=== PATIENT | male | born 1955 | race Caucasian/White ===

== ENCOUNTER → 2017-12-18 09:51 | Outpatient (CLI) | payer MEDICARE | END | disposition home or self-care (01) | LOC: D.US 09:51 | DX: R60.0 Localized edema (principal); Z87.438 Personal history of other diseases of male genital organs ==

== ENCOUNTER → 2019-12-12 08:04 | Outpatient (CLI) | payer MEDICARE ==
[2019-10-22 07:29] VITALS: BMI 31.5
[~2019-12-12 08:04] MED LIST: BUPROPION XL150 MG PO; FUROSEMIDE20 MG PO; K-TAB10 MEQ PO; KLONOPIN1 MG PO; LEXAPRO20 MG PO; LOPID600 MG PO; MIRALAX17 GM PO; NORVASC10 MG PO; ROPINIROLE HCL0.5 MG PO; SINEMET 25-1001 EAC1 PO; SINEMET CR 50-1 EACH PO; SYNTHROID25 MCG PO; TOPROL XL25 MG PO; VITAMIN B COMPLEX PO; VITAMIN D3 PO
== END | disposition home or self-care (01) ==
LOC: D.HCCARDIO 08:04
PROVIDERS: ATTEND Internal Medicine Cardiovascular Disease
DX: R07.9 Chest pain, unspecified (principal)

== ENCOUNTER 2019-12-25 11:26 | Outpatient (CLI) | payer MEDICARE ==
[~2019-12-25] VITALS: Ht 182.9 cm; Wt 98.6 kg
--- NOTE | ~2019-12-25 | HEMODYNAMI ---
PATIENT:HILARIO LEE MEDICAL RECORD: [id number] : 53 LOCATION:D.CAT ADMISSION DATE: 12/25/19 Generatedon:12/25/201914:52 Patient name: HILARIO LEE Patient #: [id number] SSN: [id number] : 1955 Date of study: 12/25/2019 Page: Of Hemodynamic Procedure Report Patient Data Patient Demographics Procedure consent was obtained First Name: HILARIO Gender: Male Last Name: EJSUS : 1955 Patient #: [id number] Age: 64 year(s) Race: SSN: [id number] Additional ID: [id number] Contact details Address: [address] [place] [address] State: [place] City: [place] Zip code: [address] Past Medical History Performed procedures and imaging results Date Procedure Procedure Results Comments 12/12/2019 Stress testing Positive->Intermediate with SPECT MPI risk Allergies: No known allergies Admission Admission Data Admission Date: 12/25/2019 Admission Time: 11:26 Arrival Date: 12/25/2019 Arrival Time: 0:00 Admit Source: Other Insurance Payor: Medicare [facility] #: [id number] Height (in.): 72 BSA: 2.21 (m2) Height (cm.): 182.88 BMI: 29.49 (kg/m2) Weight (lbs.): 217.44 Weight (kg.): 98.63 Lab Results Lab Result Date: 12/25/2019 Lab Result Time: 0:00 Biochemistry Name Units Result Min Max BUN mg/dl 18 --(---*)-- 7 18 Creatinine mg/dl 1 --(--*-)-- 0.6 1.3 eGFR ml/min 79.25744 *-(----)-- 90 120 NONAFRICAN CBC Name Units Result Min Max Hematocrit % 50.4 --(--*-)-- 42 54 Hemoglobin g/dl 16.4 --(--*-)-- 13.5 17.5 Procedure Procedure Types Cath Procedure Diagnostic Procedure C [facility] w/Coronaries Sedation Charges Moderate Sedation up to 15 minutes Procedure Description Procedure Date Procedure Date: 12/25/2019 Procedure Start Time: 14:35 Procedure End Time: 14:50 Procedure Staff Name Function Beni Mirza MD Performing Physician Lourdes Ernst RT Monitor Farzaneh Gtz RT Scrub Sumeet Hatch RN Nurse Procedure Data Cath Procedure Fluoroscopy Diagnostic fluoroscopy Total fluoroscopy Time: 3.7 time: 3.7 min min Diagnostic fluoroscopy Total fluoroscopy dose: 651 dose: 651 mGy mGy Contrast Material Contrast Material Type Amount (ml) Isovue 370 63 Entry Location Entry Primary Successful Side Size Upsize Upsize Entry Closure Michel ccessful Closure Location (Fr) 1 (Fr) 2 (Fr) Remarks Device Remarks Radial Right 6 Fr Mechanical artery Short Compression Estimated blood loss: 5 ml Diagnostic catheters Device Type Used For End Catheter Placement DIAGNOSTIC Erick 110cm Procedure 5Fr catheter ([id number]) DIAGNOSTIC [place] 110cm 5 Procedure Fr catheter ([id number]) DIAGNOSTIC AR MOD 5Fr Procedure Catheter ([id number]) Procedure Complications No complications Procedure Medications Medication Administration Route Dosage Oxygen etCO2 Nasal cannula 3 l/min Lidocaine 2% added to field 20 Heparin Flush Bag added to field 2 bags (1000units/500ml NS) 0.9% NaCl I.V. 100 ml/hr Versed I.V. 1 mg Fentanyl I.V. 50 mcg Radial Cocktail I.A. 1 syringe (Verapamil 2mg/Nitro 400mcg/Heparin 1500units) Versed I.V. 1 mg Fentanyl I.V. 50 mcg Hemodynamics Rest BSA: 2.21 (m2) HGB: 16.4 (g/dl) O2 Consumption: Estimated: 266.48 (ml/min) O2 Co nsumption indexed: Estimated:120.58 (ml/min/m) Heart Rate: 81 (bpm) Pressure Samples Time Site Value (mmHg) Purpose Heart Use Rate(bpm) 14:40 LV 152/-7,19 Snapshot 91 14:42 AO 112/78(87) Pullback 80 14:42 LV 127/-2,9 Pullback 80 Gradients Valve Time Site 1 Site 2 Mean SEP/DFP Peak To Heart Use (mmHg) (sec/min) Peak Rate (mmHg) (bpm) Aortic 14:42 LV AO 7 17 15 80 127/-2,9 112/78(87) Calculations Valve P-P Mean Valve Index Valve Source Name Gradient Area Flow (cm2) Aortic 15 7 15 7 Snapshots Pre Cath Intra NCS Post Cath Vital Signs Time Heart Resp SPO2 etCO2 NIBP (mmHg) Rhythm Pain Sedation Rate (ipm) (%) (mmHg) Status Level (bpm) 14:22:56 102 13 93 0 136/103(126) NSR 0 (11) 10(A) , No pain 14:27:10 78 15 92 25.5 145/100(120) NSR 0 (11) 10(A) , No pain 14:31:28 77 10 91 44.4 139/94(134) NSR 0 (11) 10(A) , No pain 14:36:33 78 15 90 41.4 137/123(131) NSR 0 (11) 10(A) , No pain 14:40:41 79 11 91 34.6 108/81(89) NSR 0 (11) 10(A) , No pain 14:44:44 81 12 93 44.3 124/88(106) NSR 0 (11) 10(A) , No pain 14:49:50 81 11 93 30.8 119/83(100) NSR 0 (11) 10(A) , No pain Medications Time Medication Route Dose Verified Delivered Reason Notes Effectiveness by by 14:27:08 Oxygen etCO2 3 l/min Beni Buffie used for Nasal Hermes Hatch RN procedure cannula 14:27:14 Lidocaine 2% added 20ml Beni Beni for local to vial Hermes Mirza MD anesthetic field 14:27:39 Heparin Flush added 2 bags Beni Beni used for Bag to Hermes Mirza MD procedure (1000units/500ml field NS) 14:27:47 0.9% NaCl I.V. 100 Beni Buffie Per ml/hr Hermes Hatch RN physician 14:33:43 Versed I.V. 1 mg Beni Buffie for sedation Hermes Hatch RN 14:33:48 Fentanyl I.V. 50 mcg Beni Buffie for sedation Hermes Hatch RN 14:40:31 Radial Cocktail I.A. 1 Beni Beni for (Verapamil syringe Hermes Mirza MD vasodilation 2mg/Nitro 400mcg/Heparin 1500units) 14:40:36 Versed I.V. 1 mg Beni Beni for sedation Hermes Mirza MD 14:40:39 Fentanyl I.V. 50 mcg Beni Beni for sedation Hermes Mirza MD Procedure Log Time Note 14:08:42 Informed consent obtained and on chart 14:09:49 Diagnostic Cath Status : Elective 14:10:35 Lab Result : BUN 18 mg/dl 14:10:35 Lab Result : eGFR NONAFRICAN 79.83586 ml/min 14::35 Lab Result : Hemoglobin 16.4 g/dl 14::35 Lab Result : Creatinine 1 mg/dl 14::35 Lab Result : Hematocrit 50.4 % 14:10:38 Arrival Date: 12/25/2019 12:00:00 AM 14:10:39 Admit Source: Other 14:10:42 Patient Height : 72 inches 14:10:50 Patient Weight : 217.44 lbs 14:10:57 Insurance Payor : Medicare 14:11:26 Sumeet Hatch RN sent for patient. Start room use. 14:11:35 Time tracking: Regular hours (M-F 7:00 - 5:00) 14:11:39 Plan of Care:Hemodynamics will remain stable., Cardiac rhythm will remain stable., Comfort level will be maintained., Respiratory function will remain adequate., Patient/ family verbilizes understanding of procedure., Procedure tolerated without complication., Recovers from procedure without complications.. 14:11:46 Alarms reviewed by R. N. 14:11:47 Sharps counted by scrub and verified by R.N. 14:11:55 Lab results completed and on chart. 14:12:08 Stress Test: yes; abnormal anterior 14:12:30 H&P Date Dictated: 12/05/2019 Within 30 days and on chart.. 14:12:41 Patient allergic to No known allergies 14:16:17 Patient received from Pre/Post Procedure Room to CCL 1 Alert and oriented. Tansferred to table in Supine position. 14:16:18 Warm blankets applied, and suze hugger turned on for patient comfort. 14:16:19 Correct patient and procedure confirmed by team. 14:16:19 ECG and BP/O2 sat monitors applied to patient. 14:16:20 Pre-procedure instructions explained to patient. 14:16:21 Pre-op teaching completed and patient verbalized understanding. 14:16:23 Family unavailable. 14:16:24 Patient NPO since Midnight. 14:16:26 Is the patient allergic to Iodine/contrast media? No. 14:16:28 Was the patient premedicated? N/A 14:16:31 Is patient on blood thinner?No 14:16:33 Patient diabetic? No. 14:16:35 If diabetic: On Metformin? N/A 14:16:39 ----Pre-sedation anethsthesia assessment.---- 14:16:42 Previous problem with sedation/anesthesia? No ? 14:16:43 Snore? Yes 14:16:44 Sleep apnea? Yes 14:16:45 Deviated septum? No 14:16:46 Opens mouth fully? Yes 14:16:47 Sticks out tongue? Yes 14:16:50 Airway obstruction? No ? 14:16:52 Dentures? No ? 14:17:02 Risk of Mortality: .1 14:17:04 Risk of blood transfusion: .1 14:17:06 Risk of INDERJIT: .1 14:17:11 Patient pain scale 0/10 ?. 14:17:34 IV patent on arrival in right antecubital with 0.9% NaCl at [facility] 14:21:49 Vital chart was started 14:24:35 Baseline sample Acquired. 14:24:35 Full Disclosure recording started 14:24:36 Rhythm: sinus rhythm 14:24:42 Pre procedure: right dorsailis pedis pulse 2+ Normal; easily identifiable; not easily obliterated 14:24:45 Modified Thanh's test Ulnar < 7 seconds 14:24:53 Right Radial & Right Groin area was prepped with chlora-prep and draped in sterile fashion 14:24:56 Use device set Radial Dx or PCI 14:24:58 ACIST Syringe (54219) opened to sterile field. 14:24:58 Medline Cath Pack ([id number]) opened to sterile field. 14:24:59 Bag Decanter (2002) opened to sterile field. 14:25:00 ACIST Hand Control (26189) opened to sterile field. 14:25:00 ACIST Manifold (82656) opened to sterile field. 14:25:02 MBrace Wrist Support ([id number]) opened to sterile field. 14:25:02 NEEDLE Cook 21G 4cm Radial (P20560) opened to sterile field. 14:25:04 EMERALD Guide Wire (747-740) opened to sterile field. 14:25:05 SHEATH 6FR RAIN (3946993) opened to sterile field. 14:27:08 Oxygen 3 l/min etCO2 Nasal cannula was administered by Sumeet Hatch RN; used for procedure; Verbal order read back and verified. 14:27:14 Lidocaine 2% 20ml vial added to field was administered by Beni Mirza MD; for local anesthetic; Verbal order read back and verified. 14:27:39 Heparin Flush Bag (1000units/500ml NS) 2 bags added to field was administered by Beni Mirza MD; used for procedure; Verbal order read back and verified. 14:27:47 0.9% NaCl 100 ml/hr I.V. was administered by Sumeet Hatch RN; Per physician; Verbal order read back and verified. 14:31:04 --------ALL STOP TIME OUT------ 14::05 Final Timeout: patient, procedure, and site verified with staff and physician. All members of the team are in agreement. 14:31:08 Right Radial & Right Groin site verified by team. 14:31:12 Fire Safety Assessment: A--An alcohol-based skin anteseptic being used preoperatively., C--Open oxygen or nitrous oxide is being used., D--An ESU, laser, or fiber-optic light is being used. 14:31:16 Physical assessment completed. ASA score P 2 - A patient with mild systemic disease as per Beni Mirza MD. 14:31:21 2) 60-89 Mildly reduced kidney function, and other findings (as for stage 1) point to kidney disease. 14:31:24 Maximum allowable contrast dose (3.7 X eGFR X 0.75)222 ml. 14:31:30 Sedation plan: IV Moderate Sedation Medication:Versed, Fentanyl 14:33:43 Versed 1 mg I.V. was administered by Sumeet Hatch RN; for sedation; Verbal order read back and verified. 14:33:48 Fentanyl 50 mcg I.V. was administered by Sumeet Hatch RN; for sedation; Verbal order read back and verified. 14:35:04 Procedure started. 14:35:22 Local anesthetic to right radial artery with Lidocaine 2% by Beni Mirza MD.INITIAL ACCESS ONLY 14:36:29 A 6 Fr Short sheath was inserted into the Right Radial artery 14:39:39 A DIAGNOSTIC Erick 110cm 5Fr catheter (394489) was advanced over the wire and used for Procedure. 14:40:31 Radial Cocktail (Verapamil 2mg/Nitro 400mcg/Heparin 1500units) 1 syringe I.A. was administered by Beni Mirza MD; for vasodilation; Verbal order read back and verified. 14:40:36 Versed 1 mg I.V. was administered by Beni Mirza MD; for sedation; Verbal order read back and verified. 14:40:39 Fentanyl 50 mcg I.V. was administered by Beni Mirza MD; for sedation; Verbal order read back and verified. 14:40:40 LV gram done using [place] 14:40:59 Injector settings: Ml/sec: 5, Volume: 15, 14:41:00 LV hemodynamics recorded. 14:42:07 EF : 55 % 14:43:50 Catheter exchanged over wire. 14:43:51 UNABLE TO ENGAGE CHANGING CATHETERS. 14:43:55 A DIAGNOSTIC [place] 110cm 5 Fr catheter (911850) was advanced over the wire and used for Procedure. 14:44:02 LCA angiography performed. 14:44:05 Injector settings: Ml/sec: 3, Volume: 6, 14:45:14 Catheter exchanged over wire. 14:45:24 UNABLE TO ENGAGE CHANGING CATHETERS. 14:46:10 A DIAGNOSTIC AR MOD 5Fr Catheter (903097N) was advanced over the wire and used for Procedure. 14:47:17 RCA angiography performed. 14:47:24 ACCDominant side:Co-Dominant 14:47:46 Catheter removed. 14:48:00 ZEPHYR REGULAR TR BAND (731543) opened to sterile field. 14:48:11 Sheath removed intact; hemostasis achieved with Mechanical Compression to the Right Radial artery. 14:48:14 Procedure ended.(Physican Out) 14:48:24 Fluoroscopy time 03.70 minutes. 14:48:29 Fluoroscopy dose: 651 mGy 14:48:29 Flurop Dose total: 651 14:48:35 Dose Area Product 90623 mGy/cm. 14:48:49 Contrast amount:Isovue 370 63ml. 14:48:52 Maximum allowable dose exceeded? No. 14:48:53 Sharps counted by scrub and verified by R.N. 14:48:55 [place] band inflated with 11cc of air. 14:49:02 Post right radial artery:stable 14:49:06 Post procedure: right dorsailis pedis pulse 2+ Normal; easily identifiable; not easily obliterated. 14:49:10 Post-procedure physical assessment completed. ASA score P 2 - A patient with mild systemic disease as per Beni Mirza MD. 14:49:13 Post procedure rhythm: unchanged. 14:49:15 Estimated blood loss: 5 ml 14:49:17 Post procedure instruction explained to patient.Patient verbalizes understanding. 14:49:18 Patient needs reinforcement of post procedure teaching. 14:49:34 Procedure type changed to Cath procedure, Diagnostic procedure, LHC, C w/Coronaries, Sedation Charges, Moderate Sedation up to 15 minutes 14:49:56 Procedure and supply charges have been captured, reviewed, submitted and are correct. 14:50:04 Procedure Complication : No complications 14:50:06 Vital chart was stopped 14:50:08 [facility] Findings: mild to moderate CAD (<70%) 14:50:12 Operative report dictated upon procedure completion. 14:50:13 See physician's report for complete and final results. 14:50:14 Report given to Pre/Post Procedure Room. 14:50:17 Patient transfered to Pre/Post Procedure Room with Stretcher. 14:50:20 Procedure ended. 14:50:20 Full Disclosure recording stopped 14:50:23 End room use (Document Last) 14:50:35 End room use (Document Last) 14:50:54 End room use (Document Last) Device Usage Item Name Manufacture Quantity Catalog Hospital Part Current Minima l Lot# / Number Charge Number Stock Stock Serial# Code ACIST Acist 1 10065 738226 482276 [id number] 20 Syringe Medical (37736) Systems Inc Medline Medline 1 [id number] 846979 58405 593042 5 Cath Pack ([id number]) Bag Microtek 1 906007 42685 443533 5 Decanter Medical Inc. () ACIST Hand Acist 1 52264 309125 981794 493365 5 Control Medical (00958) Systems Inc ACIST Acist 1 79518 543815 675876 478445 5 Manifold Medical (44127) Systems Inc MBrace Advanced 1 140-0250-00 255463 95458 607364 5 Wrist Vascular Support Dynamics ([id number]) NEEDLE Cook Cook Medical 1 U53991 485155 500062 999906 5 21G 4cm Radial (W86728) EMERALD Cardinal 1 502-455 377911 915456 661165 5 Guide Wire Health (502-455) SHEATH 6FR Cardinal 1 8587439 055615 4418614 359078 5 RAIN Health (3317234) DIAGNOSTIC Terumo 1 40-5023 937268 083487 153563 5 Erick 110cm 5Fr catheter (344124) DIAGNOSTIC Terumo 1 40-5013 950155 692290 305820 5 [place] 110cm 5 Fr catheter (101357) DIAGNOSTIC Cardinal 1 [id number] 079685 866626 838923 15 AR MOD 5Fr Health Catheter (796778L) ZEPHYR Cardinal 1 860485 800076 3246127 956405 5 REGULAR TR Health BAND (236862) Signature Audit [place] Stage Time Signature Unsigned Intra-Procedure 12/25/2019 Lourdes Ernst 2:50:35 PM RT(R) Intra-Procedure 12/25/2019 Sumeet Hatch RN 2:50:54 PM Intra-Procedure 12/25/2019 Beni Mirza MD 2:52:17 PM [facility] [address] [place] [address]
[2019-12-25 12:03] VITALS: BP 160/88; Ht 182.9 cm; Wt 98.6 kg
[2019-12-25 12:17] LABS: BASOPHILS 0.5 % (0-2); EOSINOPHILS 1.5 % (0-7); HEMATOCRIT 50.4 % (42.0-54.0); HEMOGLOBIN 16.4 g/dL (13.5-17.5); IMMATURE GRANULOCYTES 0.4 % (0-5); LYMPHOCYTES 24.7 % (15-50); MCH 30.7 pg (26.0-34.0); MCHC 32.5 g/dL (31.0-37.0); MCV 94.2 fL (80.0-100.0); MEAN PLATELET VOLUME 9.7 fL (7.4-10.4); MONOCYTES 11.2 % (2-11); NEUTROPHILS 61.7 % (40-80); PLATELET COUNT 283 10x3/uL (130-400); RBC 5.35 10x6/uL (4.20-6.10); RDW 13.3 % (11.5-14.5); WBC 5.5 10x3/uL (4.8-10.8)
[2019-12-25 12:35] LABS: ALT (SGPT) 9 U/L (10-68); CALC OSMOLALITY 281 mosm/kg (275-300); CALCIUM 9.2 mg/dL (8.5-10.1); CHLORIDE - SERUM 104 mmol/L (98-107); CHOL - HDL RATIO 4.4 ratio (2.3-4.9); CHOLESTEROL, TOTAL 173 mg/dL (0-200); GLUCOSE 86 mg/dL (74-106); HDL CHOLESTEROL 39 mg/dL (32-96); LDL CHOLESTEROL 103 mg/dL (0-100); LDL-HDL RATIO 2.6 ratio (1.5-3.5); POTASSIUM - SERUM 4.1 mmol/L (3.5-5.1); SODIUM 141 mmol/L (136-145); TRIGLYCERIDE 156 mg/dL (30-200); UREA NITROGEN 18 mg/dL (7-18); eGFR NON AFRICAN AMERICAN 80 mL/min (90-120)
--- NOTE | 2019-12-25 15:08 | NUR ---
PT REC'D TO ROOM 3 VIA STRETCHER FROM GRIP. MONITORS ESTAB. SEE INSIDE SALES PROFESSIONAL, ALARMS ON AND C/L IN REACH.
--- NOTE | 2019-12-25 15:15 | NUR ---
R WRIST SITE C/D/I, NO S/S BLEEDING OR HEMATOMA. HR 75, B/P 119/75 POX 92%. R HAND WARM WITH BRISK CAP REFILL. PT RESTING QUIETLY, DENIES NEEDS. ALARMS ON AND C/L IN REACH.
--- NOTE | 2019-12-25 15:45 | NUR ---
VSS. PT ATE SANDWICH, NO N/V. R WRIST SITE C/D/I, NO S/S BLEEDING OR SWELLING. PT DENIES NEEDS. ALARMS ON AND C/L IN REACH.
--- NOTE | 2019-12-25 15:56 | NUR ---
SPOKE WITH PTS , UPDATE GIVEN AND D/C INSTRUCTIONS REVIEWED. PLAN TO D/C PT AT 1700.
--- NOTE | 2019-12-25 16:00 | NUR ---
5 CC AIR REMOVED FROM Z BAND, NO S/S BLEEDING OR HEMATOMA. WILL CONT CLOSE MONITORING.
--- NOTE | 2019-12-25 16:25 | NUR ---
DR. WORKMAN IN TO TALK TO PT, TOTAL 7CC AIR REMOVED FROM Z BAND, NO S/S BLEEDING OR HEMATOMA.
--- NOTE | 2019-12-25 16:45 | NUR ---
R WRIST SITE C/D/I, NO S/S BLEEDING. PIV D/C'D INTACT - DSG APPLIED. PT ALLOWED UP TO GET DRESSED.
--- NOTE | 2019-12-25 16:55 | NUR ---
ALL D/C INSTRUCTIONS REVIEWED WITH PT - HE VERBALIZES UNDERSTANDING. PT TO BR INDEPENDENTLY.
--- NOTE | 2019-12-25 17:00 | NUR ---
R WRIST SITE WITH TEGADERM DSG C/D/I AND WRIST IMMOBILIZER ON. PT DC'D TO PRIVATE VEHICLE WITH . PT HAS ALL PAPER WORK AND BELONGINGS.
== END 2019-12-25 17:00 | disposition home or self-care (01) ==
LOC: D.CATH 11:26
PROVIDERS: ATTEND Internal Medicine Cardiovascular Disease
DX: I20.9 Angina pectoris, unspecified (principal); I10 Essential (primary) hypertension; I35.8 Other nonrheumatic aortic valve disorders; R06.00 Dyspnea, unspecified; G20 Parkinson's disease; R94.39 Abnormal result of other cardiovascular function study